=== PATIENT | male | born 1970 | race Caucasian/White ===

== ENCOUNTER 2016-10-25 22:41 | Emergency (ER) | payer OTHER ==
[~2016-10-25] VITALS: Ht 193 cm; Wt 97.1 kg
[~2016-10-25 22:41] MED LIST: NOHOMEMEDS
[2016-10-25] MEDS ORDERED: HUMIRA (23:29)
[2016-10-25] MEDS ORDERED: KEFLEX500 MG PO (23:42)
[2016-10-25] MEDS ORDERED: BACTRIM,SEPT1 TABLET PO (23:43)
[2016-10-26 00:07] VITALS: BP 142/92
== END 2016-10-26 00:08 | disposition home or self-care (01) ==
LOC: EME 22:41
DX: N48.22 Cellulitis of corpus cavernosum and penis (principal); R59.1 Generalized enlarged lymph nodes; F17.200 Nicotine dependence, unspecified, uncomplicated
CPT/HCPCS: 81003; 99281; 99284